=== PATIENT | male | born 1955 | race African-American/Black ===

== ENCOUNTER 2025-09-05 09:29 | Emergency (ER) | payer MEDICARE, SELFPAY ==
--- OUTSIDE RECORDS SUMMARY | 2016-11-25 05:16 | XMS_ITS | Continuity of Care Document ---
Author Organization [facility] vice Agency Address [address] [place] [address] Phone Care Team Providers Care Diversity Manager Name Role Phone Austin Clancy MD Unavailable Unavaila ble Allergies, Adverse Reactions, Alerts Substance Reaction Status Criticality tramadol Active No Information Medications Medication Instructions Dosage Effective Dates (start - stop) Status Comments meloxicam 15 mg tablet take 1 tablet by oral route every day 15 MG - Active gabapentin 300 mg capsule take 1 capsule by oral route 2 times every day 300 MG - Active mirtazapine 30 mg tablet take 1 tablet by oral route every day before bedtime as needed - Active trazodone 150 mg tablet take 2 tablets before bedtime - No Longer Active fluoxetine 40 mg capsule take 1 capsule by oral route every day in the morning 40 MG - No Longer Active tramadol 50 mg tablet take 1 tablet by oral route every 6 hours as needed 50 MG - No Longer Active Procedures Procedure Date OFFICE/OUTPATIENT VISIT, NEW UA Dip_URINALYSIS NONAUTO W/O SCOPE COMPLETE CBC W/AUTO DIFF WBC HIV-1 AG W/HIV-1 & HIV-2 AB COMPREHEN METABOLIC PANEL MICROALBUMIN, QUANTITATIVE ASSAY OF URINE CREATININE Drug Screen, Single Results Test Name Date and Time Measure Units Reference Range Abnormal Flag Status Comments Panel Description: CBC With Differential/Platele t Final WBC 2015 08:25:0 0 7.3 x10E3/u L 3.4-10.8 Final Performed by:Sergio BAZAN) RBC 2015 08:25:0 0 4.57 x10E6/u L 4.14-5.80 Final Performed by:Sergio BAZAN) Hemoglobin 2015 08:25:0 0 12.0 g/dL 12.6-17.7 L Final Performed by:Sergio BAZAN) Hematocrit 2015 08:25:0 0 38.5 % 37.5-51.0 Final Performed by:Sergio BAZAN) MCV 2015 08:25:0 0 84 fL 79-97 Final Performed by:Sergio BAZAN) MCH 2015 08:25:0 0 26.3 pg 26.6-33.0 L Final Performed by:Sergio BAZAN) MCHC 2015 08:25:0 0 31.2 g/dL 31.5-35.7 L Final Performed by:Sergio BAZAN) RDW 2015 08:25:0 0 14.8 % 12.3-15.4 Final Performed by:Sergio BAZAN) Platelets 2015 08:25:0 0 442 x10E3/u L 150-379 H Final Performed by:Sergio BAZAN) Neutrophils 2015 08:25:0 0 75 % Final Performed by:Sergio BAZAN) Lymphs 2015 08:25:0 0 15 % Final Performed by:Sergio BAZAN) Monocytes 2015 08:25:0 0 8 % Final Performed by:Sergio BAZAN) Eos 2015 08:25:0 0 2 % Final Performed by:Sergio BAZAN) Basos 2015 08:25:0 0 0 % Final Performed by:Sergio BAZAN) Immature Cells 2015 08:25:0 0 Final Performed by:Sergio BAZAN) Neutrophils (Absolute) 2015 08:25:0 0 5.4 x10E3/u L 1.4-7.0 Final Performed by:Sergio BAZAN) Lymphs (Absolute) 2015 08:25:0 0 1.1 x10E3/u L 0.7-3.1 Final Performed by:Sergio BAZAN) Monocytes(Absolute ) 2015 08:25:0 0 0.6 x10E3/u L 0.1-0.9 Final Performed by:Sergio BAZAN) Eos (Absolute) 2015 08:25:0 0 0.2 x10E3/u L 0.0-0.4 Final Performed by:Sergio BAZAN) Baso (Absolute) 2015 08:25:0 0 0.0 x10E3/u L 0.0-0.2 Final Performed by:Sergio BAZAN) Immature Granulocytes 2015 08:25:0 0 0 % Final Performed by:Sergio BAZAN) Immature Grans (Abs) 2015 08:25:0 0 0.0 x10E3/u L 0.0-0.1 Final Performed by:Sergio BAZAN) NRBC 2015 08:25:0 0 Final Performed by:Sergio BAZAN) Hematology Comments: 2015 08:25:0 0 Final Performed by:Sergio BAZAN) Panel Description: Comp. Metabolic Panel (14) F inal Glucose, Serum 2015 08:04:0 0 98 mg/dL 65-99 Final Performed by:Sergio BAZAN) BUN 2015 08:04:0 0 20 mg/dL 8-27 Final Performed by:Sergio BAZAN) Creatinine, Serum 2015 08:04:0 0 0.81 mg/dL 0.76-1.27 Final Performed by:Sergio BAZAN) eGFR If NonAfricn Am 2015 08:04:0 0 95 mL/min/ 1.73 >59 Final Performed by:Sergio BAZAN) eGFR If Africn Am 2015 08:04:0 0 109 mL/min/ 1.73 >59 Final Performed by:Sergio BAZAN) BUN/Creatinine Ratio 2015 08:04:0 0 25 10-22 H Final Performed by:Sergio BAZAN) Sodium, Serum 2015 06:58:0 0 138 mmol/L 134-144 Final Performed by:Sergio Hull (THOMAS) Potassium, Serum 2015 06:58:0 0 4.3 mmol/L 3.5-5.2 Final Performed by:Sergio BAZAN) Chloride, Serum 2015 06:58:0 0 97 mmol/L 96-106 Final Performed by:Sergio BAZAN) Carbon Dioxide, Total 2015 08:04:0 0 23 mmol/L 18-29 Final Performed by:Sergio BAZAN) Calcium, Serum 2015 08:04:0 0 9.3 mg/dL 8.6-10.2 Final Performed by:Sergio BAZAN) Protein, Total, Serum 2015 08:04:0 0 7.7 g/dL 6.0-8.5 Final Performed by:Sergio BAZAN) Albumin, Serum 2015 08:04:0 0 4.1 g/dL 3.6-4.8 Final Performed by:Sergio BAZAN) Globulin, Total 2015 08:04:0 0 3.6 g/dL 1.5-4.5 Final Performed by:Sergio BAZAN) A/G Ratio 2015 08:04:0 0 1.1 1.1-2.5 Final Performed by:Sergio BAZAN) Bilirubin, Total 2015 08:04:0 0 0.5 mg/dL 0.0-1.2 Final Performed by:Sergio BAZAN) Alkaline Phosphatase, S 2015 08:04:0 0 72 IU/L 39-117 Final Performed by:Sergio BAZAN) AST (SGOT) 2015 08:04:0 0 10 IU/L 0-40 Final Performed by:Sergio BAZAN) ALT (SGPT) 2015 08:04:0 0 11 IU/L 0-44 Final Performed by:Sergio BAZAN) Panel Description: Heavy Metals Profile, Urine Final Creatinine(Parachute Accessories Attacher),U 2015 15:55:0 0 3.26 g/L 0.30-3.00 H Final Detection Limi t = 0.10Performed by:Sergio BAZAN) Arsenic (Total),U 2015 09:56:0 0 34 ug/L 0-50 Final Detection Limi t = 10Performed by:Sergio BAZAN) Arsenic(Inorganic) ,U 2015 10:31:0 0 None Detected ug/L 0-19 Final . Environmental Exposure: 0-19 Occupational Exposure: 35 . Detection Limit = 10Performed by:Sergio BAZAN) Inorg. As/Parachute Accessories Attacher Ratio 2015 10:31:0 0 Final Performed by:Sergio BAZAN) Arsenic,Urine 24 Hr 2015 09:56:0 0 Final Performed by:Sergio BAZAN) Lead, Urine 2015 09:56:0 0 2 ug/L 0-49 Final Detection Limi t = 1Performed by:Sergio BAZAN) Lead/Creat. Ratio 2015 15:55:0 0 1 ug/g creat 0-49 Final Environmental Exposure: < 50Performed by:Sergio BAZAN) Lead, Urine (24 Hr) 2015 09:56:0 0 Final Performed by:Sergio BAZAN) Mercury, Urine 2015 09:56:0 0 None Detected ug/L 0-19 Final Detection Limit = 1Performed by:Sergio BAZAN) Mercury/Creat. Ratio 2015 09:56:0 0 Final Performed by:Sergio BAZAN) Mercury,Urine 24 Hr 2015 09:56:0 0 Final Performed by:Sergio BAZAN) Panel Description: Microalb/Creat Ratio, Randm U r Final Creatinine, Urine 2015 09:53:0 0 323.1 mg/dL Not Estab. Final Performed by:Sergio BAZAN) Microalbumin, Urine 2015 09:53:0 0 31.9 ug/mL Not Estab. Final Performed by:Sergio BAZAN) Microalb/Creat Ratio 2015 09:53:0 0 9.9 mg/g creat 0.0-30.0 Final Performed by:Sergio BAZAN) Panel Description: No Urine Total Volume Receive d Final No Urine Total Volume Received 2015 17:36:0 0 Final Urine volume confirmed as random per requisition.Uri ne total volume not indicated.Perfo rmed by:Sergio BAZAN) Panel Description: Panel [id number] Final HIV Screen 4th Generation wRfx 2015 09:56:0 0 Non Reactive Non Reactive Final Performed by:Sergio BAZAN) Panel Description: 265694 7 Drug-Bund Final Amphetamines, Urine 2015 08:13:0 0 See Final Results ng/mL Dstrto=3592 Final Amphetamine test includes Amphetamine and Methamphetamine .Performed by:Sergio CUNNINGHAM) Panel Description: Drug Profile [id number] Final Amphetamines 2015 17:47:0 0 Negative Qxxobl=8549 Final Amphetamine test includes Amphetamine and Methamphetamine .Performed by:Sergio CUNNINGHAM) Panel Description: [id number] 7 Drug-Bund Final Barbiturate 2015 08:13:0 0 Negative ng/mL Liqcqr=194 Final Performed by:Sergio CUNNINGHAM) Benzodiazepines 2015 08:13:0 0 Negative ng/mL Qkdfkz=718 Final Performed by:Sergio CUNNINGHAM) Cannabinoid 2015 08:13:0 0 Negative ng/mL Cutoff=50 Final Performed by:Sergio CUNNINGHAM) Cocaine (Metab.) 2015 08:13:0 0 Negative ng/mL Lxumoh=612 Final Performed by:Sergio CUNNINGHAM) Opiates 2015 08:13:0 0 Negative ng/mL Oqxaou=558 Final Opiate test includes Codeine, Morphine, Hydromorphone, Hydrocodone.Per formed by:Sergio CUNNINGHAM) Phencyclidine 2015 08:13:0 0 Negative ng/mL Cutoff=25 Final Performed by:Sergio CUNNINGHAM) Advance Directives Directive Yes / No Effective Date File Name No Information Encounters Encounter Description Practice Location Reason(s) For Visit Diagnoses Date Provider Providers Copied on Encounter OFFICE/OUTPA TIENT VISIT, [facility], [address] [place] [address], [address], [place] tel:[phone] [facility] Musculoskelet al pain (chief complaint)ot er (chief complaint) ParesthesiaIn somnia due to medical conditionPoly myalgiaLow back pain 6 Aston Avila[address] [place] [address], [address]. tel:[phone] Family History Family Member Type Diagnosis Age At Onset No Information Payers Payer name Insurance type Covered constitution party ID Authoriza tion(s) No Information Social History Type Description Quantity Date Captured Comments Alcohol Use Details beer 3 beers socially Caffeine Use Details coffee 1 cup per day Tobacco Use Status Light cigarette smok er (1-9 cigs/day) Smoking Status Light tobacco smoker Smoking Tobacco Use Details Cigarette: No Details Available Cigarette: 2 Cigarettes per day Sex Male Vital Signs Date / Time: Height Weight BMI Pulse Rate Blood Pressure Temperature Respiratory Rate Body Surface Area Head Circumference Head Circ. Percentile Wt./Eric. Percentile BMI percentile Pulse Ox Inhaled Ox 9:44 AM 69.00 in 66.224 kg (146.00 lbs) 21.5 6 kg/m eter (2) 118 /min 110/60 mm[Hg] 97.40 F 20 /min 1.80 meter(2) Chief Complaint And Reason For Visit From encounter dated '11/25/2016 09:16'. Musculoskeletal pain (chief complaint). Description: Onset: 3 months ago. It occurs constantly. Thepain is aching. Associated symptoms include decreased mobility, joint tenderness, spasms, tingling in the arms and weakness. 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 Pt states the poisoning caused him to have full body pain and went to ER on 09/29. other (chief complaint). Description: Pt was seen at [facility] 10/27 and just consulted with a provider who referred him to a neurologist. Pt has not seen neurologist, would like a resolutionfor his muscle pain. Denies relief with tramadol prescribed Reason For Referral Reason For Referral No Information History Of Present Illness Encounter Date Complaint History Of Prese nt Illness other Pt was seen at [facility] 10/27 and just consulted with a provider who referred him to a neurologist. Pt has not seen neurologist, would like a resolution for his muscle pain. Denies relief with tramadol prescribed Musculoskeletal pain (comments) Pt reports he was poisoned with mercury via food from [employer]. Pt states a 'striping' type pain began in bilateral lower legs and has spread to entire body. Pt is taking 2 tab of 600mg of ibuprofen twice a day.Smokes 1/2 PPD. Musculoskeletal pain Onset: 3 mo nths ago. It occurs constantly. The pain is aching. Associated symptoms include decreased mobility, joint tenderness, spasms, tingling in the arms and weakness. 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 Pt states the poisoning caused him to have full body pain and went to ER on 09/29. Functional Status Date Functional Assessmen t No Information Medications Administered Medication Instructions Dosage Effective Dates (start - stop) Status Comments trazodone 150 mg tablet take 2 tablets before bedtime - No Longer Active fluoxetine 40 mg capsule take 1 capsule by oral route every day in the morning 40 MG - No Longer Active tramadol 50 mg tablet take 1 tablet by oral route every 6 hours as needed 50 MG - No Longer Active Instructions Date Instruction Additional Infor mation No Information Assessments Type Assessment Date assessment Paresthesia assessment Insomnia due to medical conditio n assessment Polymyalgia assessment Low back pain Mental Status Date Cognitive Assessment Orientation - [place] ed to time, place, person, situation.Normal Orientation Patient Care Teams Name Effective Dates (start - stop) Status Members No Information
--- OUTSIDE RECORDS SUMMARY | 2025-09-03 09:30 | XMS_ITS | Encounter Summary ---
Author Organization [facility] Address [address] [place] [address] Care Team Providers Care Manager Program Name Role Phone Kelly Lee MD Primary Care Provider [phone] Reason for Visit * Reason Comments Nasal Congestion Cough X 3 days Encounter Details Date Type Department Care Team (Latest Contact Info) Description 09/03/2025 9:30 AM EDT Office Visit Walk-In Clinic - [address] [phone] Hector Smallwood, TRAFFIC CHIEF [address] [place] [address] Symptoms of upper respiratory infection (URI) (Primary [...] care for your loved ones. For example, assistant child care teacher or elderly care for an older adult? [...] of upper respiratory infection (URI) Poc Rapid [id number], MOLECULAR PLAN: The patient's PMH, problem list [...] pt to rest,proper hydration, warm steamy showers, [id number]-[id number] medication decongestants acceptable patient's past medical history. [...] propionate (FLONASE) 50 mcg/actuation nasal spray 1 Gobles by Nasal route daily. 1 sprayeach nostril [...] Care Team (Late st Contact Info) Description 09/06/2025 8:45 AM EDT Office Visit Internal Medicine - [place] [address] [phone] Kelly Lee MD [address] [phone] 11/24/2025 1:00 PM EST Office Visit Internal Medicine [facility] [address] [phone] Kelly Lee MD [address] [phone] documented as of this encounter Procedures Procedure Name Priority Date/Time Associated Diagnosis Comments POC RAPID [id number], MOLECULAR Routine 09/03/2025 9:41 AM EDT Symptoms of upper respiratory infection (URI) documented in this encounter Results * Poc Rapid [id number], MOLECULAR (09/03/2025 9:41 AM EDT) COVID-19/SARS- COV-2 Rapid POC Negative Negative Swab Nasopharyngeal structure / Unknown 09/03/2025 9:41 AM EDT Hector Smallwood TRAFFIC CHIEF POINT OF CARE TEST ENTER/EDIT ORDERABLES Final Result documented in this encounter Visit Diagnoses Diagnosis Symptoms of upper respiratory infection (URI)- Primary documented in this encounter Additional Health Concerns Assessment Noted Time PHQ-9 Depression Total Score: 0 05/25/20 25 1:37 PM EDT documented as of this encounter Care Teams Manager Program Relationship Specialty Start Date End Date Kelly Lee MD [address] [place] [phone] PCP - General Internal Medicine 11/01/18 documented as of this encounter
--- NOTE | ~2025-09-05 | XR_ITS ---
EXAMINATION: XR CHEST CLINICAL INFORMATION: productive cough COMPARISON: None available. TECHNIQUE: 2 views of the chest were obtained. FINDINGS: There is a 4.4 cm rounded density projecting over the right lung base probably in the central perihilar right lower lobe. Differential would include mass versus round pneumonia. Lungs are otherwise clear. Cardiac and mediastinal contours are normal. No pleural effusion or pneumothorax. Degenerative changes of the spine. XR/XR chest 2V IMPRESSION: 4.4 cm round density at the right lung base probably in the central right lower lobe. Differential would include a mass and round pneumonia. If there is clinical suspicion of pneumonia, short-term follow-up chest x-ray would be recommended following treatment. If there is no clinical suspicion of infection, chest CT follow-up would be recommended at this time. Electronically signed by: Adeline Lopez MD 09/05/2025 10:14 AM EDT
[2025-09-05 09:54] VITALS: BP 133/95; PULSE 80; RESP 18; TEMP 37; O2SAT 95; BMI 26.6
--- NOTE | 2025-09-05 09:54 | ED_ITS ---
HPI - General Adult General Chief complaint: Extremity Injury, Upper Stated complaint: Upper resp symptoms Time Seen by Provider: 09/05/25 10:15 Source: patient, RN notes reviewed and old records reviewed Mode of arrival: ambulatory Limitations: no limitations History of Present Illness ED Provider: [facility] narrative: Patient is a 70-year-old male with reported history of HTN presenting to the ED with complaint of congestion, productive cough since waking on Thursday morning. Denies fevers. Thursday he was seen at urgent care and tested negative for Covid. Cough ongoing and states sputum is a dark brown color. complaint: cough Onset (ago): day(s) Related Data Previous Rx's ?Medication ?Instructions ?Recorded amoxicillin 500 mg capsule 1,000 mg (2 x 500 mg) PO TI D 5 09/05/25 days #30 caps Allergies Allergy/AdvReac Type Severity Reaction Status Date / Time lisinopril Allergy Angioedema Verified 09/05/25 10:52 Review of Systems Review of Systems: as per hpi Yes all other systems are reviewed and are negative Constitutional: Constitutional: Reports as per HPI [facility] Social History Social History Advance Directives: No Advance Directives Information Provided: No Physical Exam ED Vital Signs: Vital Signs - 24 hr 09/05/25 09:54 Temperature 98.6 F Pulse Rate 80 Respiratory Rate 18 Blood Pressure 133/95 H Pulse Oximetry 95 Oxygen Delivery Method Room Air BMI result Body Mass Index 26.6 Vital signs have been reviewed and appear to be correct. Blood pressure normal. Heart rate normal. Respiratory rate normal. Temperature normal. Oxygen saturation normal. Const General: cooperative, healthy appearing and no acute distress Orientation/consciousness: oriented to person, oriented to place, oriented to time and patient oriented x3 Limitations: no limitations HENMT Head: Yes normocephalic and Yes atraumatic Ears: hearing grossly normal bilaterally, external ears normal, TM's normal bilaterally, EAC's normal, mastoids normal bilaterally and no periauricular adenopathy General nose exam: Normal external nose present and Normal nasal mucous membranes and turbinates present Face and sinus: Yes face symmetric Mouth: oropharynx normal and moist mucous membranes Throat: Yes uvula midline Eyes Pupils: Equal, round and reactive pupils present Neck Neck: Yes normal visual inspection and Yes supple Resp Effort & Inspection: normal respiratory effort and able to speak in complete sentences Auscultation: clear to auscultation bilaterally Cardio Rate: regular rate Rhythm: regular rhythm Heart sounds: S1 normal heart sound present and S2 normal heart sound present GI Palpation (GI): Soft to palpation and nontender Auscultation: normoactive bowel sounds General: Yes no CVA tenderness Back/Spine/Pelvis Back: no CVA tenderness Skin General skin exam: elasticity normal and turgor normal Neuro General: oriented to person, oriented to place, oriented to time, patient oriented x3, moves all extremities, no focal motor deficits and CN's II-XI intact bilaterally Cranial nerves: Yes Equal, round and reactive pupils present Cognition (Neuro): normal cognition Extrem General: Yes full ROM, Yes no pedal edema and Yes no calf tenderness Psych Mental Status: mental status grossly normal Affect: normal affect Thought process: Normal thought process present Course Course Course Narrative: This is a rapid medical exam performed by Alex Worthy NP: Additional HPI, ROS, PE not included below will be deferred to primary provider. Patient is a 70y/o M presenting to the ED with complaint of congestion, productive cough. Denies fevers. Sxs since before Thursday when he was seen at urgent care. Plan: viral swabs, CXR Medical Decision Making Medical Decision Making [facility] Narrative: Patient is a 70y/o M presenting to the ED with complaint of congestion, productive cough. On exam patient is awake, A+Ox3, VS WNL, afebrile, normal neurological exam without focal deficits, physical exam findings as above. Given reported symptoms and physical exam findings, initial differential includes but is not limited to viral illness, Covid, flu, bronchitis, pneumonia. Viral swabs negative. X-ray chest notable for round pneumonia vs mass. My interpretation is in agreement with the radiologist's interpretation. Given that patient has pneumonia symptoms, will treat with antibiotics, but discussed results with patient and stressed the importance of follow up with his PCP for repeat imaging to rule out mass. Return precautions discussed. Patient verbalized understanding of and agreement with plan. Differential Diagnosis Differential Diagnoses: The differential diagnosis associated with the presentation includes as per [facility] Admission/Observation Consideration of admission/observation: Escalation of care including admission/observation considered Patient would have been admitted to the hospital and transferred to appropriate facility had their clinical presentation warranted hospital admission. Lab Data [facility] Lab Attestation statement: I reviewed the patient's lab results. as per [facility] Labs: Lab Results 09/05/25 Range/Units 10:09 COVID-19 (MARCEL) Negative (Negative) COVID-19 Clin Com See Note Influenza Type A (JELANI) Negative (Negative) Influenza Type B (JELANI) Negative (Negative) Influenza A & B Note See Note Independent Interpretation I performed an independent interpretation of an: Plain X-Ray Interpretation: Right lower lobe density of chest xray. Radiology Impression Discussion of test interpretation with radiology: I have reviewed the radiologist's reading. Radiologist Impression: XR/XR chest 2V IMPRESSION: 4.4 cm round density at the right lung base probably in the central right lower lobe. Differential would include a mass and round pneumonia. If there is clinical suspicion of pneumonia, short-term follow-up chest x-ray would be recommended following treatment. If there is no clinical suspicion of infection, chest CT follow-up would be recommended at this time. External Record Review External record reviewed: Inpatient record, Office record and Outpatient record Prescription Management I considered prescription management with: Antibiotic Discharge Plan Discharge Clinical Impression: Right lower lobe pneumonia Qualifiers: Pneumonia type: due to unspecified organism Qualified Code(s): J18.9 - Pneumonia, unspecified organism Patient Disposition: Home, Self-Care Instructions: Community Acquired Pneumonia (DC) Additional Instructions: You were evaluated in the emergency department today for cough and shortness of breath. Your chest x-ray shows evidence of pneumonia. The area on your chest x-ray is round, and it is very important that you follow up with your primary care provider for a repeat chest x-ray following treatment to ensure this have resolved, otherwise it could be concerning for a mass. You are being treated with antibiotics, please complete the full course as prescribed. You are also being prescribed an inhaler and cough medicine which you can use per instructions. Please call your primary care provider within the next 2-3 days to schedule a follow-up appointment. You will need a repeat chest x-ray to confirm resolution of your pneumonia. Return to the emergency department if you develop worsening shortness of breath, chest pain, palpitations, fever 100.4? F or greater, or any other concerning symptoms. XR/XR chest 2V IMPRESSION: 4.4 cm round density at the right lung base probably in the central right lower lobe. Differential would include a mass and round pneumonia. If there is clinical suspicion of pneumonia, short-term follow-up chest x-ray would be recommended following treatment. If there is no clinical suspicion of infection, chest CT follow-up would be recommended at this time. Prescriptions: New amoxicillin 500 mg capsule 1,000 mg PO TID 5 Days Qty: 30 0RF Print Language: Bulgarian
[2025-09-05 10:34] LABS: COVID-19 Test Negative (Negative); IDNOW Serial# 55D5AD1C; IDNOW Serial# 58CA691E; Influenza B2 Negative (Negative)
[2025-09-05 10:52] VITALS: BP 133/95; PULSE 80; RESP 18; TEMP 37; O2SAT 95
--- OUTSIDE RECORDS SUMMARY | 2025-09-05 12:10 | XMS_ITS | Encounter Summary ---
Author Organization [facility] Address [address] [place] [address] Care Team Providers Care Vehicle Insurance Agent Name Role Phone Kelly Lee MD Primary Care Provider [phone] Reason for Visit * Reason Onset Date Comments Cough 09/05/2025 Encounter Details Date Type Department Care Team (Late st Contact Info) Description 09/05/2025 Telephone Internal Medicine - [place] [address] [place] [phone] Kelly Lee MD [address] [place] [phone] Social History Tobacco Use Types Packs/Day Years [...] Record ed Within the last 3 months, charline wilder many times did you visit the emergency [...] care for your loved ones. For example, childcare aide or elderly care for an older adult? [...] on file documented as of this encounter Progress Notes * Montserrat Wyatt RN - 09/05/2025 9:44 AM EDT Call to pt # [phone], spoke w/ his . He went to last week. His symptoms are continued. They are concerned. The just brought the pt to [facility] ER and they will wait there for treatment for his URI. Is looking for an appt for his skin changes - the pt is black and he is getting patches on white onhis back - I booked for tomorrow with Dr. Lee. They will call if the pt still in the hospital.Otherwise will bring his d/c summary with them to the appt * Milena Ventura - 09/05/2025 9:37 AM EDT Patient called and stated that he has a upper respiratory infection because he has a cough with green and brown mucus coming up and he has been like this for over a week. Patient also mentioned he has spots on his back and skin one is getting light and supply controller Please advise Cb# [phone] documented in this encounter Plan of Treatment Upcoming Encounters Date Type Department Care Team (Late st Contact Info) Description 09/06/2025 8:45 AM EDT Office Visit Internal Medicine - [place] [address] [phone] Kelly Lee MD [address] [phone] 11/24/2025 1:00 PM EST Office Visit Internal Medicine - [place] [address] [phone] Kelly Lee MD [address] [phone] documented as of this encounter Visit Diagnoses Not on filedocumented in this encounter Additional Health Concerns Assessment Noted Time PHQ-9 Depression Total Score: 0 05/25/20 25 1:37 PM EDT documented as of this encounter Care Teams Vehicle Insurance Agent Relationship Specialty Start Date End Date Kelly Lee MD [address] [phone] PCP - General Internal Medicine 12/3/18 documented as of this encounter
--- OUTSIDE RECORDS SUMMARY | 2025-09-05 12:10 | XMS_ITS | Clinical Summary ---
Author Organization [address] [facility] Address [address] [place] [address] Phone Care Team Providers Care Commercial Intelligence Manager Name Role Phone Kelly Lee MD Primary Care Provider [phone] Allergies Active Allergy Reactions Criticality Noted Date Comments Lisinopril Swelling 01/12/2012 Medications fluticasone propionate (FLONASE) 50 mcg/actuation nasal spray 1 [place] by Nasal route daily. 1 spray each nostril daily 05/21/20 23 Active tamsulosin (FLOMAX) 0.4 mg 24 hr capsule Take 1 capsule (0.4 mg total) by mouth 1 (one) time each day. Capsules should be taken 30 minutes following the same meal each day. 90 capsule 2 02/25/20 25 Active magnesium oxide (MAG-OX) 400 mg (241.3 elemental magnesium) tablet Take 1 tablet (400 mg total) by mouth 1 (one) time each day. 30 tablet 1 03/06/20 25 Active metFORMIN XR (GLUCOPHAGE-XR ) 500 mg 24 hr tablet Take 1 tablet (500 mg total) by mouth 1 (one) time each day with breakfast. Do not crush, chew, or split. 90 tablet 03/09/20 25 Active potassium chloride (KLOR-CON M10) 10 mEq CR tablet TAKE 1 TABLET BY MOUTH DAILY 100 tablet 2 03/20/20 25 Active hydroCHLOROthi azide (HYDRODIURIL) 25 mg tablet Take 1 tablet (25 mg total) by mouth 1 (one) time each day. 90 tablet 1 05/25/20 25 Active amLODIPine (NORVASC) 10 mg tablet Take 1 tablet (10 mg total) by mouth 1 (one) time each day. 90 tablet 1 05/25/20 25 Active atorvastatin (LIPITOR) 10 mg tablet TAKE 1 TABLET(10 MG) BY MOUTH 1 TIME EACH DAY 90 tablet 1 05/25/20 25 Active magnesium oxide 400 mg magnesium capsule Take 1 capsule by mouth at bedtime. 90 capsule 3 05/25/20 25 Active carbamide peroxide (DEBROX) 6.5 % otic solution Administer 5-10 drops into each ear 2 (two) times a day. 30 mL 5 06/08/20 25 026 Active meloxicam (MOBIC) 7.5 mg tabletIndicati ons:Subacute maxillary sinusitis Take 1 tablet (7.5 mg total) by mouth 1 (one) time each day. 10 each 1 07/04/20 25 Active losartan (COZAAR) 100 mg tablet TAKE 1 TABLET(100 MG) BY MOUTH 1 TIME EACH DAY 30 tablet 1 08/21/20 25 Active benzonatate (TESSALON) 100 mg capsule Take 1 capsule (100 mg total) by mouth 3 (three) times a day if needed for cough for up to 7 days. Do not crush or chew. 21 each 09/03/20 25 025 Active losartan (COZAAR) 100 mg tablet Take 1 tablet (100 mg total) by mouth 1 (one) time each day. 30 each 2 05/25/20 25 025 Discontinued Active Problems Problem Noted Date Diagnosed Date Anemia 11/15/2024 Assessment & Plan (05/25/2025 10:16 PM EDT): Orders: Comprehensive metabolic panel; Future Magnesium; Future CBC and differential; Future Iron and TIBC; Future Ferritin; Future History of alcohol abuse 11/08/2018 Hypertension 08/19/2018 Vitamin D deficiency 08/14/2018 Hypokalemia 05/20/2018 Assessment & Plan (05/25/2025 10:16 PM EDT): Orders: Comprehensive metabolic panel; Future Magnesium; Future CBC and differential; Future Benign prostate hyperplasia 06/23/2017 ED (erectile dysfunction) 12/11/2015 Essential hypertension, benign 04/02/2006 Assessment & Plan (05/25/2025 10:16 PM EDT): Orders: Comprehensive metabolic panel; Future Magnesium; Future CBC and differential; Future Encounters Date Type Department Care Team Description 09/05/2025 Telephone Internal Medicine [address] [phone] Kelly Lee MD 09/03/2025 9:30 AM EDT Office Visit [facility] [address] [phone] Hector Smallwood, LISANDRA Symptoms of upper respiratory infection (URI) (Primary Dx) 07/04/2025 9:00 AM EDT Office Visit Internal Medicine [address] [phone] Glen Elias MD Subacute maxillary sinusitis (Primary Dx); Nonintractable headache, unspecified chronicity pattern, unspecified headache type 07/03/2025 Telephone Internal Medicine [address] [phone] Kelly Lee MD 06/08/2025 3:45 PM EDT Office Visit Internal [address] [phone] Lainey Wells MD Sore throat (Primary Dx); Nonintractable headache, unspecified chronicity pattern, unspecified headache type; Bilateral impacted cerumen from Last 3 Months Immunizations Immunization Administration Dates Next Due Influenza trivalent, 0.5mL (Fluad) 65yo and olde r 08/22/2019 [place] SARS-CoV-2 COVID-19, mRNA, LNP-S, preservative free 03/07/2021,02/08/2021 Pneumococcal conjugate 13 va lent (Prevnar 13, PCV13) 2mo and older 08/19/2018 Td Tetanus diptheria (Tdvax) 7yo and older 04/02,11/30/1995 Tdap Tetanus diptheria acell ular pertussis (Boostrix; Adacel) 7yo and older 12/11/2015 Zoster Live 05/25/2015 Surgical History Surgery Date Site/Laterality Comments COLONOSCOPY 02/22/2009 PROCEDURE: HISTORICAL COLONOSCOPY; COMMENT: Up to cecum, good preparation, 3 polyps removed from sigmoid: Tubular adenoma COLONOSCOPY 09/02/2013 PROCEDURE: HISTORICAL COLONOSCOPY; COMMENT: 12 mm TVA with focal HGD at the rectosigmoid junction. COLONOSCOPY 03/09/2015 PROCEDURE: HISTORICAL COLONOSCOPY; COMMENT: 5 mm SC polyp; hot snare polypectomy, small tissue specimen lost. Medical History Medical History Date Comments ED (erectile dysfunction) 12/11/2015 DX:ED (erectile dysfunction) Vitamin D deficiency 08/14/2018 DX:Vitamin D deficiency Hypertension 08/19/2018 DX:Hypertension History of diverticulitis of colon 01/17/2014 DX:History of diverticulitis of colon Benign prostate hyperplasia 06/23/2017 DX:B enign prostate hyperplasia Essential hypertension, benign 04/02/2006 D X:Essential hypertension, benign History of alcohol abuse 11/08/2018 DX:Hist ory of alcohol abuse Hypokalemia 05/20/2018 DX:Hypokalemia History of colon polyps 03/08/2015 DX:Histo ry of colon polyps History of COVID-19 03/11/2021 DX:History o f COVID-19 Family History Medical History Relation Name Comments Other: Other Brother 1 Other: Other Brother 2 Other: Other Sister 1 Other: Other Sister 2 alcoholic cirrh osis Relation Name Status Comments Brother 1 Brother 2 Sister 1 Sister 2 Social History Tobacco Use Types Packs/Day Years [...] care for your loved ones. For example, director maternal child or elderly care for an older adult? [...] on file Sexual Orientation Not on file Obstetrics History Last Filed Vital Signs Vital Sign Reading Time Taken Comments Blood Pressure 154/78 09/03/2025 9:31 AM EDT Pulse 94 09/03/2025 9:31 AM EDT Temperature 36.5 C (97.7 F) 09/03/2025 9:31 AM EDT Respiratory Rate - - Oxygen Saturation 98% 09/03/2025 9:31 AM EDT Inhaled Oxygen Concentration - - Weight 79.3 kg (174 lb 12.8 oz) 07/04/2025 8:57 AM EDT Height 167.6 cm (5' 6 ) 07/04/2025 8:57 AM EDT Body Mass Index 28.21 07/04/2025 8:57 AM EDT Plan of Treatment Upcoming Encounters Date Type Department Care Team (Late st Contact Info) Description 09/06/2025 8:45 AM EDT Office Visit Internal Medicine - [place] [address] [facility] [address] [place] [phone] Kelly Lee MD 175 [facility] [address] [place] [phone] 11/24/2025 1:00 PM EST Office Visit Internal Medicine [facility] 175 [facility] [address] [place] [phone] Kelly Lee MD [address] [phone] Health Maintenance Due Date Last Done Comments Abdominal Aortic Aneurysm (AAA) Screen 11/08/2022 Zoster Vaccines (3 of 3) 04/09/2024 02/13/2024, 05/01 COVID-19 Vaccine ( season) 2025 09/16/2024, 02/13/2024, 09/03/2023, Additional history exists Falls Risk Assessment 11/15/2025 11/15/2024 Social Influencers of Health Screening 11/15/2025 11/15/2024 DTaP,Tdap,and Td Vaccines (4 - Td or Tdap) 12/11/2025 12/11/2015, 04/02/2006, 11/30/1995 Colorectal Cancer Screening: Colonoscopy 12/17/2025 12/17/2020 Hypertension/CHF/CAD Annual BMP Blood Test 05/25/2026 05/25/2025, 11/15/2024, 05/26/2024, Additional history exists Medicare Annual Wellness Visit 05/25/2026 05/25/2025 Cholesterol Screening (Lipid Panel) 05/26/2029 05/26/2024, 05/26/2024 Hepatitis C Screening Completed 10/11/2019 RSV Immunization Adult Patients Completed 09/03/2023 Pneumococcal Vaccine: 50+ Years Completed 02/13/2024, 08/19/2018 Depression Screening Completed 05/25/2025, 05/26/20 Influenza Vaccine Completed 08/02/2025, , 09/03/2023, Additional history exists HIB Vaccines Aged Out No longer eligi ble based on patient's age to complete this topic HPV Vaccines Aged Out No longer eligi ble based on patient's age to complete this topic Hepatitis A Vaccines Aged Out No long er eligible based on patient's age to complete this topic Hepatitis B Vaccines Aged Out No long er eligible based on patient's age to complete this topic IPV Vaccines Aged Out No longer eligi ble based on patient's age to complete this topic MMR Vaccines Aged Out No longer eligi ble based on patient's age to complete this topic Meningococcal ACWY Vaccine Aged Out N o longer eligible based on patient's age to complete this topic Meningococcal B Vaccine Aged Out No l onger eligible based on patient's age to complete this topic RSV Immunization Patients Under 20 months Aged Out No longer eligible based on patient's age to complete this topic Varicella Vaccines Aged Out No longer eligible based on patient's age to complete this topic Procedures Procedure Name Priority Date/Time Associated Diagnosis Comments POC RAPID [id number], MOLECULAR Routine 09/03/2025 9:41 AM EDT Symptoms of upper respiratory infection (URI) COMPREHENSIVE METABOLIC PANEL Routine 05/25/2025 2:03 PM EDT Hypokalemia Essential hypertension, benign Anemia, unspecified type DEPRESSION SCREENING Routine 05/26/2024 LIPID PANEL Routine 05/26/2024 COLONOSCOPY Routine 12/17/2020 HEPATITIS C SCREENING Routine 10/11/2019 from Last 3 Months or Most Recently Relevant to Health Maintenance Results * Poc Rapid [id number], MOLECULAR (09/03/2025 9:41 AM EDT) Pathologist [facility] COVID-19/SARS- COV-2 Rapid POC Negative Negative Swab Nasopharyngeal structure / Unknown 09/03/2025 9:41 AM EDT Hector Smallwood NP POINT OF CARE TEST ENTER/EDIT ORDERABLES Final Result * (ABNORMAL) Comprehensive metabolic panel (05/25/2025 2:03 PM EDT) [facility] Sodium 138 133 - 145 mmol/L LAB CHEMISTRY METHOD 05/25/2025 7:04 PM [facility] Potassium 3.6 3.5 - 5.5 mmol/L LAB CHEMISTRY METHOD 05/25/2025 7:04 PM [facility] Chloride 104 96 - 110 mmol/L LAB CHEMISTRY METHOD 05/25/2025 7:04 PM [facility] CO2 27 21 - 32 mmol/L LAB CHEMISTRY METHOD 05/25/2025 7:04 PM [facility] Anion Gap 7 3 - 11 LAB CHEMISTRY METHOD 05/25/2025 7:04 PM [facility] Glucose 133(H) 70 - 100 mg/dL LAB CHEMISTRY METHOD 05/25/2025 7:04 PM [facility] BUN 13 5 - 25 mg/dL LAB CHEMISTRY METHOD 05/25/2025 7:04 PM [facility] Creatinine 1.00 0.70 - 1.30 mg/dL LAB CHEMISTRY METHOD 05/25/2025 7:04 PM [facility] eGFR 80 >=60 mL/min/1. 73m2 LAB CHEMISTRY METHOD 05/25/2025 7:04 PM [facility] Comment:Calculation based on the Chronic Kidney Disease Epidemiology Collaboration (CKD-EPI) equation refit without adjustment for race. BUN/Creatinine Ratio 13.0 LAB CHEMISTRY METHOD 05/25/2025 7:04 PM [facility] Calcium 9.1 8.5 - 10.5 mg/dL LAB CHEMISTRY METHOD 05/25/2025 7:04 PM [facility] AST (SGOT) 16 10 - 42 unit/L LAB CHEMISTRY METHOD 05/25/2025 7:04 PM [facility] ALT (SGPT) 27 10 - 60 unit/L LAB CHEMISTRY METHOD 05/25/2025 7:04 PM [facility] Alkaline Phosphatase 63 42 - 121 unit/L LAB CHEMISTRY METHOD 05/25/2025 7:04 PM [facility] Total Protein 7.8 6.0 - 8.0 g/dL LAB CHEMISTRY METHOD 05/25/2025 7:04 PM [facility] Albumin 3.9 3.2 - 5.0 g/dL LAB CHEMISTRY METHOD 05/25/2025 7:04 PM [facility] Total Bilirubin 0.5 0.0 - 1.4 mg/dL LAB CHEMISTRY METHOD 05/25/2025 7:04 PM [facility] Blood Venous blood specimen / Unknown Venipuncture / Unknown 05/25/2025 2:03 PM EDT 05/25/2025 2:03 PM EDT us Kelly Lee MD LAB BLOOD ORDERABLES Final Res ult [facility] [address] [place] [address], * Depression Screening (05/26/2024) Pathologist [facility] Depression Screening abstracted Historical Provider HEALTH MAINTENANCE Final Result * Lipid panel (05/26/2024) LDL/HDL Ratio 3 0 - 4 Triglycerides 72 0 - 150 mg/dL Cholesterol 181 0 - 200 mg/dL HDL 70 >=40 mg/dL LDL Cholesterol 97 0 - 100 mg/dL Blood Venous blood specimen / Unknown Historical Provider LAB BLOOD ORDERABLES Cynthia l Result * Colonoscopy (12/17/2020) Colonoscopy abstracted, no interpretation Anatomical Region Laterality Modality Other Historical Provider HEALTH MAINTENANCE Final Result * Hepatitis C Screening (10/11/2019) Pathologist [facility] Hepatitis C Screening abstracted Historical Provider HEALTH MAINTENANCE Final Result from Last 3 Months or Most Recently Relevant to Health Maintenance Insurance [employer] Care Teams Commercial Intelligence Manager Relationship Specialty Start Date End Date Kelly Lee MD [address] [place] [phone] PCP - General Internal Medicine 11/01/18
== END 2025-09-05 10:53 | disposition home or self-care (01) ==
PROVIDERS: Registered Nurse Emergency; Emergency Provider Emergency Medicine; PCP Internal Medicine
DX: J18.9 Pneumonia, unspecified organism (principal); R05.9 Cough, unspecified; Z11.52 Encounter for screening for COVID-19; Z79.899 Other long term (current) drug therapy
CPT/HCPCS: 71046; 87502; 87635; 99282; 99283

== ENCOUNTER → 2025-09-05 09:55 | Outpatient (BNV) | payer MEDICARE, SELFPAY | PROVIDERS: Emergency Provider Emergency Medicine; PCP Internal Medicine; Visit Provider Radiology Diagnostic Radiology | DX: R91.8 Other nonspecific abnormal finding of lung field (principal) | CPT/HCPCS: 71046 ==

== ENCOUNTER 2025-09-07 12:39 | Emergency (ER) | payer MEDICARE, SELFPAY ==
--- OUTSIDE RECORDS SUMMARY | 2025-09-03 09:30 | XMS_ITS | Encounter Summary ---
Author Organization [facility] Address [address] [place] [address] Care Team Providers Care Global Compensation Manager Name Role Phone Kelly Lee MD Primary Care Provider [phone] Reason for Visit * Reason Comments Nasal Congestion Cough X 3 days Encounter Details Date Type Department Care Team (Latest Contact Info) Description 09/03/2025 9:30 AM EDT Office Visit Walk-In Clinic - [address] [phone] Hector Smallwood, [employer] [address] [place] [phone] Symptoms of upper respiratory infection (URI) (Primary Dx) Social History Tobacco Use Types Packs/Day Years Used Date Smoking Tobacco: Former Cigarettes 0.5 33.4 0 11/30/1972 - 04/30/2006 Smokeless Tobacco: Never Alcohol Use Standard Drinks/Week Comments No 0 (1 standard drink = 0.6 oz pur e alcohol) Housing Instability Answer Date Recorde d Are you worried that in the next 2 months you may not have stable housing? No 11/15/2024 Food Access & Nutrition Answer Date Rec orded Do you have access to a vari ety of food including fruits and vegetables? Yes 11/15/2024 Access to Healthcare Answer Date Record ed Within the last 3 months, ho w many times did you visit the emergency department for your medical care? 0 11/15/2024 Health Literacy Answer Date Recorded How often do you need to hav e someone help you when you read instructions, pamphlets, or other written material from your doctor or pharmacy? Never 11/15/2024 Caregiver: How often do you need to have someone help you when you read instructions, pamphlets, or other written material from your doctor or pharmacy? Not on file 11/15/2024 Financial Risk Answer Date Recorded How hard is it for you to pa y for the very basics like food, housing, medical care, and air conditioning / heating? Not very hard 11/15/2024 Transportation Answer Date Recorded Has the lack of transportati on kept you from meetings, work, or from getting things needed for daily living? No Has the lack of transportati on kept you from medical appointments or from getting medications? No 11/15/2024 Social Isolation Answer Date Recorded How often do you feel lonely or isolated from th ose around you? Never 11/15/2024 Food Risk Answer Date Recorded Within the past 12 months we worried whether our food would run out before we got money to buy more. Never true 11/15/2024 Within the past 12 months th e food we bought just didn't last and we didn't have money to get more. Never true 11/15/2024 Dependent Care Answer Date Recorded Do you need help finding or paying for care for your loved ones. For example, children's ministry director or elderly care for an older adult? No 11/15/2024 Education Answer Date Recorded Do you think completing more education or training, like finishing a GED, going to college, or learning a trade, would be helpful for you? N/A 11/15/2024 Employment and Income Answer Date Recor ded During the last four weeks, have you been actively looking for work? No 11/15/2024 Living Situation Answer Date Recorded What is your living situation? Unrecognized valu e 11/15/2024 Sex and Gender Information Value Date Recorded Sex Assigned at Not on file Legal Sex Male 12:56 AM EST Gender Identity Not on file Sexual Orientation Not on file documented as of this encounter Last Filed Vital Signs Vital Sign Reading Time Taken Comments Blood Pressure 154/78 09/03/2025 9:31 AM EDT Pulse 94 09/03/2025 9:31 AM EDT Temperature 36.5 C (97.7 F) 09/03/2025 9:31 AM EDT Respiratory Rate - - Oxygen Saturation 98% 09/03/2025 9:31 AM EDT Inhaled Oxygen Concentration - - Weight - - Height - - Body Mass Index - - documented in this encounter Ordered Prescriptions Prescription Sig Dispense Quantity Refills Last Filled Start Date End Date benzonatate (TESSALON) 100 mg capsule Take 1 capsule (100 mg total) by mouth 3 (three) times a day if needed for cough for up to 7 days. Do not crush or chew. 21 each 09/03/2025 documented in this encounter Progress Notes * Hector Smallwood NP - 09/03/2025 9:30 AM EDT CHIEF COMPLAINT: Nasal Congestion and Cough (X 3 days ) IDENTIFIER: Jw De Leon is a 70 y.o. old male. HPI: Patient presents today complaining of cough for 3 day(s). Cough is productive of sputum. denies shortness of breath. denies wheezing. Patient denies fevers. Patient also complains of post nasal drip,sinus and nasal congestion, and sore throat. ROS: GENERAL: SEE HPI HEENT: SEE HPI RESPIRATORY: See HPI CARDIOVASCULAR: SEE HPI GI: No abdominal discomfort, blood in stools or black stools PAST MEDICAL HISTORY: Patient Active Problem List Diagnosis Date Noted Anemia 11/15/2024 History of alcohol abuse 11/08/2018 Hypertension 08/19/2018 Vitamin D deficiency 08/14/2018 Hypokalemia 05/20/2018 Benign prostate hyperplasia 06/23/2017 ED (erectile dysfunction) 12/11/2015 Essential hypertension, benign 04/02/2006 Surgical History[1] SOCIAL HISTORY: Social History Tobacco Use Smoking status: Former Current packs/day: 0.00 Average packs/day: 0.5 packs/day for 33.4 years (16.7 ttl pk-yrs) Types: Cigarettes Start date: 11/30/1972 Quit date: 04/30/2006 Years since quittin.3 Smokeless tobacco: Never Substance Use Topics Alcohol use: No FAMILY HISTORY: Family History[2] Family Status Relation Name Status Sister (Not Specified) Sister (Not Specified) Brother (Not Specified) Brother (Not Specified) No partnership data on file MEDICATIONS DISCONTINUED/REORDERED: There are no discontinued medications. ACTIVE MEDICATIONS: Medications Taking[3] ALLERGIES: Allergies[4] PHYSICAL EXAM: Vitals: 09/03/25 0931 BP: (!) 154/78 Pulse: 94 Temp: 36.5 ??C (97.7 ??F) TempSrc: Temporal SpO2: 98% APPEARANCE: Alert and in no acute distress EYES: PERRL, conjunctiva and sclera normal EARS: External ears normal. Canals clear. TMs normal. NOSE/SINUS: Nares normal. Septum midline. Mucosa boggy with congestion. Turbinates with erythema. No drainage. No sinus tenderness. MOUTH/THROAT: mild erythema post pharangeal wall with PND noted and no exudates present NECK: negative HEART: RRR with normal S1 and S2, no murmurs, no gallops, no JVD appreciated LUNG: Clear to auscultation LYMPH NODES: grossly normal NEURO: Awake, alert and oriented x 3 LABS/IMAGING: Chest xray was not ordered COVID Test- negative IMPRESSION: 1. Symptoms of upper respiratory infection (URI) Poc Rapid [id number], MOLECULAR PLAN: The patient's PMH, problem list and medications were reviewed in reference to the above diagnosis/diagnoses. *. Based on History, ROS, HPI and PE, covid test performed (negative). *. Based on HPI, ROS and PE, suggestive of viral URI. *. Prescribed benzonatate . Proper dosing and method to take medication addressed with patient. Therisks and benefits of this medication were discussed with the patient. The patient understands the potential side effects and basic interactions of this medication. The patient is asked to call me ormy colleagues if they begin to experience any difficulties with this medication. *. Educated pt to rest,proper hydration, warm steamy showers, [id number] medication decongestants acceptable patient's past medical history. Verbal suggestions given in the office but patient will check with pharmacist as we do not know every medication every pharmacy. *. Advised to follow up with PCP in 14 days, if symptoms are not improving. Advised to follow up with PCP immediately for new or worsening symptoms. *. Discussed warnings signs and symptoms that would require immediate follow up at UC/ER. Patient verbalized understanding and agreement with the plan. Hector Smallwood NP on 09/03/2025 at 9:34 AM EDT Today's documentation was made using voice recognition software. This note may contain grammatical errors secondary to this software. [1] Past Surgical History: Procedure Laterality Date COLONOSCOPY 02/22/2009 PROCEDURE: HISTORICAL COLONOSCOPY; COMMENT: Up to cecum, good preparation, 3 polyps removed from sigmoid: Tubular adenoma COLONOSCOPY 09/02/2013 PROCEDURE: HISTORICAL COLONOSCOPY; COMMENT: 12 mm TVA with focal HGD at the rectosigmoid junction. COLONOSCOPY 03/09/2015 PROCEDURE: HISTORICAL COLONOSCOPY; COMMENT: 5 mm SC polyp; hot snare polypectomy, small tissue specimen lost. [2] Family History Problem Relation Name Age of Onset Other (Other: Other) Sister Other (Other: Other) Sister alcoholic cirrhosis Other (Other: Other) Brother Other (Other: Other) Brother [3] Outpatient Medications Marked as Taking for the 09/03/25 encounter (Office Visit) with Hector Smallwood NP Medication Sig Dispense Refill amLODIPine (NORVASC) 10 mg tablet Take 1 tablet (10 mg total) by mouth 1 (one) time each day. 90 tablet 1 atorvastatin (LIPITOR) 10 mg tablet TAKE 1 TABLET(10 MG) BY MOUTH 1 TIME EACH DAY 90 tablet 1 carbamide peroxide (DEBROX) 6.5 % otic solution Administer 5-10 drops into each ear 2 (two) times aday. 30 mL 5 fluticasone propionate (FLONASE) 50 mcg/actuation nasal spray 1 [place] by Nasal route daily. 1 sprayeach nostril daily hydroCHLOROthiazide (HYDRODIURIL) 25 mg tablet Take 1 tablet (25 mg total) by mouth 1 (one) time each day. 90 tablet 1 losartan (COZAAR) 100 mg tablet TAKE 1 TABLET(100 MG) BY MOUTH 1 TIME EACH DAY 30 tablet 1 magnesium oxide (MAG-OX) 400 mg (241.3 elemental magnesium) tablet Take 1 tablet (400 mg total) by mouth 1 (one) time each day. 30 tablet 1 magnesium oxide 400 mg magnesium capsule Take 1 capsule by mouth at bedtime. 90 capsule 3 meloxicam (MOBIC) 7.5 mg tablet Take 1 tablet (7.5 mg total) by mouth 1 (one) time each day. 10 each 1 metFORMIN XR (GLUCOPHAGE-XR) 500 mg 24 hr tablet Take 1 tablet (500 mg total) by mouth 1 (one) timeeach day with breakfast. Do not crush, chew, or split. 90 tablet 0 potassium chloride (KLOR-CON M10) 10 mEq CR tablet TAKE 1 TABLET BY MOUTH DAILY 100 tablet 2 tamsulosin (FLOMAX) 0.4 mg 24 hr capsule Take 1 capsule (0.4 mg total) by mouth 1 (one) time each day. Capsules should be taken 30 minutes following the same meal each day. 90 capsule 2 [4] Allergies Allergen Reactions Lisinopril Swelling documented in this encounter Plan of Treatment Upcoming Encounters Date Type Department Care Team (Late st Contact Info) Description 11/24/2025 1:00 PM EST Office Visit Internal Medicine - [place] [address] [facility] [address] [place] [phone] Kelly Lee MD [address] [facility] [address] [place] [address] documented as of this encounter Procedures Procedure Name Priority Date/Time Associated Diagnosis Comments POC RAPID [id number], MOLECULAR Routine 09/03/2025 9:41 AM EDT Symptoms of upper respiratory infection (URI) documented in this encounter Results * Poc Rapid [id number], MOLECULAR (09/03/2025 9:41 AM EDT) COVID-19/SARS- COV-2 Rapid POC Negative Negative Swab Nasopharyngeal structure / Unknown 09/03/2025 9:41 AM EDT Hector Smallwood NP POINT OF CARE TEST ENTER/EDIT ORDERABLES Final Result documented in this encounter Visit Diagnoses Diagnosis Symptoms of upper respiratory infection (URI)- Primary documented in this encounter Additional Health Concerns Assessment Noted Time PHQ-9 Depression Total Score: 0 05/25/20 25 1:37 PM EDT documented as of this encounter Care Teams Global Compensation Manager Relationship Specialty Start Date End Date Kelly eLe MD [address] [facility] [address] [place] [phone] PCP - General Internal Medicine 11/01/18 documented as of this encounter
--- OUTSIDE RECORDS SUMMARY | 2025-09-06 08:45 | XMS_ITS | Encounter Summary ---
Author Organization [facility] Address [address] [place] [address] Care Team Providers Care Train Attendant Name Role Phone Kelly Lee MD Primary Care Provider [phone] Reason for Referral * Consultation (Routine) - Pending Review Specialty Diagnoses / Procedures Referred By Contac t Referred To Contact Dermatology Diagnoses Rash Kelly Lee MD [address] [address] Phone: tel: fax: Referral ID Status Reason Start Date Expiration Date Visits Requested Visits Authorized [id number] Pending Review Specialty Services Required 09/06/2025 09/06/2026 1 1 * Imaging (Routine) - Authorized Specialty Diagnoses / Procedures Referred By Contac t Referred To Contact Radiology Diagnoses Right lower lobe lung mass Abnormal chest xray Procedures CT Chest wo Contrast Kelly Lee MD [address] [address] Phone: tel: fax: [facility] CT Scan [address] [place] [address] Phone: tel: Referral ID Status Reason Start Date Expiration Date V isits Requested Visits Authorized [id number] Authorized 09/06/2025 09/06/2026 1 1 Reason for Visit * Reason Comments Hospital Follow-up Encounter Details Date Type Department Care Team (Late st Contact Info) Description 09/06/2025 8:45 AM EDT Office Visit Internal Medicine - [place] [address] [facility] [address] [place] [address] Kelly Lee MD [address] [facility] [address] [place] [address] Right lower lobe lung mass (Primary Dx); Abnormal chest xray; Rash; Hypokalemia; Essential hypertension, benign; Anemia, unspecified type; Benign prostatic hyperplasia with lower urinary tract symptoms, symptom details unspecified; Type 2 diabetes mellitus without complication, without long-term current use of insulin ([facility] V24, [facility] V28) Social History Tobacco Use Types Packs/Day Years Used Date Smoking Tobacco: Former Cigarettes 0.5 33.4 0 11/30/1972 - 04/30/2006 Smokeless Tobacco: Never Tobacco Cessation:Counseling Given: Not Answered Alcohol Use Standard Drinks/Week Comments No 0 [...] for your loved ones. For example, children's lunchroom supervisor or elderly care for an older adult? [...] Sign Reading Time Taken Comments Blood Pressure 128/86 09/06/2025 8:53 AM EDT Pulse 90 09/06/2025 8:53 AM EDT Temperature 36.6 C (97.9 F) 09/06/2025 8:53 AM EDT Respiratory Rate 18 09/06/2025 8:53 AM EDT Oxygen Saturation 96% 09/06/2025 8:53 AM EDT Inhaled Oxygen Concentration - - Weight 79.4 kg (175 lb) 09/06/2025 8:53 AM EDT Height 167.6 cm (5' 6 ) 09/06/2025 8:53 AM EDT Body Mass Index 28.25 09/06/2025 8:53 AM EDT documented in this encounter Ordered Prescriptions Prescription Sig Dispense Quantity Refills Last Filled Start Date End Date triamcinolone (KENALOG) 0.1 % cream Apply to affected area 1-2 times daily as needed. Avoid face and groin. 60 g 5 09/06/2025 6 documented in this encounter Progress Notes * Kelly Lee MD - 09/06/2025 8:45 AM EDT CHIEF COMPLAINT: Hospital Follow-up IDENTIFIER: Jw De Leon is a 70 y.o. old male. HPI: Patient was in the [facility] emergency room yesterday for cough and shortness of breath, COVID-negative, x-ray was showing 4.4 cm size density suspicious for air or pneumonia or a mass, patient was prescribed Augmentin, recommended a follow- up chest x-ray or a CT chest Patient is also concerned about discoloration of the skin on his neck and upper back, not really itchy ROS: GENERAL: No malaise, significant weight loss or fever NECK: No lumps, goiter, pain or significant neck swelling RESPIRATORY: No cough, wheezing or shortness of breath CARDIOVASCULAR: No chest pain, leg swelling or palpitations GI: No abdominal discomfort, blood in stools or black stools PSYCH: No sleep disturbance, mood disorder or recent psychosocial stressors. PAST MEDICAL HISTORY: Patient Active Problem List [...] No partnership data on file MEDICATIONS DISCONTINUED/REORDERED: Medications Discontinued During This Encounter Medication Reason magnesium oxide (MAG-OX) 400 mg (241.3 elemental magnesium) tablet Duplicate order ACTIVE MEDICATIONS: Medications Taking[3] ALLERGIES: Allergies[4] PHYSICAL EXAM: Visit Vitals BP 128/86 (BP Location: Left arm, Patient Position: Sitting, BP Cuff Size: Adult) Pulse 90 Temp 36.6 ??C (97.9 ??F) (Temporal) Resp 18 Ht 1.676 m (66 ) Wt 79.4 kg (175 lb) SpO2 96% BMI 28.25 kg/m?? Smoking Status Former BSA 1.89 m?? APPEARANCE: Alert and in no acute distress NECK: Neck supple, no adenopathy, thyroid symmetric and of normal size HEART: RRR with normal S1 and S2, no murmurs, no gallops, no JVD appreciated LUNG: clear to auscultation ABDOMEN: Bowel sounds normoactive, no bruits, soft, non-tender, without organomegaly or palpable masses SKIN: Skin color, texture, turgor normal. No rashes or lesions. LABS/IMAGING: Office Visit on 09/03/2025 Component Date Value Ref Range Status COVID-19/SARS-COV-2 Rapid POC 09/03/2025 Negative Negative Final Appointment on 05/25/2025 Component Date Value Ref Range Status Sodium 05/25/2025 138 133 - 145 mmol/L Final Potassium 05/25/2025 3.6 3.5 - 5.5 mmol/L Final Chloride 05/25/2025 104 96 - 110 mmol/L Final CO2 05/25/2025 27 21 - 32 mmol/L Final Anion Gap 05/25/2025 7 3 - 11 Final Glucose 05/25/2025 133 (H) 70 - 100 mg/dL Final BUN 05/25/2025 13 5 - 25 mg/dL Final Creatinine 05/25/2025 1.00 0.70 - 1.30 mg/dL Final eGFR 05/25/2025 80 >=60 mL/min/1.73m2 Final BUN/Creatinine Ratio 05/25/2025 13.0 Final Calcium 05/25/2025 9.1 8.5 - 10.5 mg/dL Final AST (SGOT) 05/25/2025 16 10 - 42 unit/L Final ALT (SGPT) 05/25/2025 27 10 - 60 unit/L Final Alkaline Phosphatase 05/25/2025 63 42 - 121 unit/L Final Total Protein 05/25/2025 7.8 6.0 - 8.0 g/dL Final Albumin 05/25/2025 3.9 3.2 - 5.0 g/dL Final Total Bilirubin 05/25/2025 0.5 0.0 - 1.4 mg/dL Final Magnesium 05/25/2025 1.8 (L) 1.9 - 2.6 mg/dL Final Iron 05/25/2025 118 50 - 160 mcg/dL Final TIBC 05/25/2025 339 250 - 450 mcg/dL Final Iron Saturation 05/25/2025 35 20 - 50 % Final Ferritin 05/25/2025 438 (H) 26 - 388 ng/mL Final PSA 05/25/2025 3.17 0.00 - 4.00 ng/mL Final WBC 05/25/2025 5.4 4.8 - 10.8 K/mcL Final RBC 05/25/2025 4.40 (L) 4.50 - 5.50 M/mcL Final Hemoglobin 05/25/2025 10.9 (L) 13.5 - 17.5 g/dL Final Hematocrit 05/25/2025 36.7 (L) 42.0 - 54.0 % Final MCV 05/25/2025 83.8 79.0 - 98.0 FL Final MCH 05/25/2025 24.9 (L) 27.0 - 32.0 pcg Final MCHC 05/25/2025 29.7 (L) 32.0 - 37.0 g/dL Final RDW 05/25/2025 12.3 11.0 - 15.0 % Final Platelets 05/25/2025 210 130 - 400 K/mcL Final MPV 05/25/2025 12.1 (H) 7.0 - 11.0 FL Final NRBC 05/25/2025 0.0 <1.0 % Final NRBC Absolute 05/25/2025 0.00 <0.10 K/mcL Final Neutrophils Relative 05/25/2025 41.7 % Final Lymphocytes Relative 05/25/2025 44.0 % Final Monocytes Relative 05/25/2025 11.6 % Final Eosinophils Relative 05/25/2025 1.7 % Final Basophils Relative 05/25/2025 0.6 % Final Immature Granulocytes Relative 05/25/2025 0.4 % Final Neutrophils Absolute 05/25/2025 2.27 1.50 - 7.00 K/mcL Final Lymphocytes Absolute 05/25/2025 2.39 1.00 - 5.00 K/mcL Final Monocytes Absolute 05/25/2025 0.63 0.20 - 1.00 K/mcL Final Eosinophils Absolute 05/25/2025 0.09 0.00 - 0.50 K/mcL Final Basophils Absolute 05/25/2025 0.03 0.00 - 0.20 K/mcL Final Immature Granulocytes Absolute 05/25/2025 0.02 0.00 - 0.03 K/mcL Final Medication and lab orders: Orders Placed This Encounter Procedures CT Chest wo Contrast Hemoglobin A1c Comprehensive metabolic panel CBC and differential Ambulatory referral to Dermatology Other orders: CT CHEST WO CONTRAST AMB REFERRAL TO DERMATOLOGY IMPRESSION: 1. Right lower lobe lung mass 2. Abnormal chest xray 3. Rash 4. Hypokalemia 5. Essential hypertension, benign 6. Anemia, unspecified type 7. Benign prostatic hyperplasia with lower urinary tract symptoms, symptom details unspecified 8. Type 2 diabetes mellitus without complication, without long-term current use of insulin ([facility], [facility] V28) PLAN: Chest x-ray abnormal at [facility] emergency room/4.4 cm mass right base--CT chest ordered Rash--will prescribe triamcinolone cream, dermatology referral placed ?? Pneumonia--continue Augmentin prescribed by [facility] emergency room Will follow-up as scheduled in October Kelly Lee MD on 09/06/2025 at 10:00 AM EDT [1] Past Surgical History: Procedure Laterality Date [...] Outpatient Medications Marked as Taking for the 09/06/25 encounter (Office Visit) with Kelly Lee MD Medication Sig Dispense Refill amLODIPine (NORVASC) 10 mg tablet Take 1 tablet (10 mg total) by mouth 1 (one) time each day. 90 tablet 1 atorvastatin (LIPITOR) 10 mg tablet TAKE 1 TABLET(10 MG) BY MOUTH 1 TIME EACH DAY 90 tablet 1 benzonatate (TESSALON) 100 mg capsule Take 1 capsule (100 mg total) by mouth 3 (three) times a day if needed for cough for up to 7 days. Do not crush or chew. 21 each 0 carbamide peroxide (DEBROX) 6.5 % otic solution Administer 5-10 drops into each ear 2 (two) times aday. 30 mL 5 fluticasone propionate (FLONASE) 50 mcg/actuation nasal spray 1 Misen[place] by Nasal route daily. 1 sprayeach nostril daily hydroCHLOROthiazide (HYDRODIURIL) 25 mg tablet Take 1 tablet (25 mg total) by mouth 1 (one) time each day. 90 tablet 1 losartan (COZAAR) 100 mg tablet TAKE 1 TABLET(100 MG) BY MOUTH 1 TIME EACH DAY 30 tablet 1 magnesium oxide 400 mg [...] same meal each day. 90 capsule 2 [DISCONTINUED] magnesium oxide (MAG-OX) 400 mg (241.3 elemental magnesium) tablet Take 1 tablet (400 mg total) by mouth 1 (one) time each day. 30 tablet 1 [4] Allergies Allergen Reactions Lisinopril Swelling documented in this encounter Plan of Treatment Upcoming Encounters Date Type Department Care Team (Late st Contact Info) Description 11/24/2025 1:00 PM EST Office Visit Internal Medicine - [place] [address] [facility] [address] [place] [address] Kelly Lee MD [address] [facility] [address] [place] [address] Scheduled Orders Name Type Priority Associated Diagnoses Orde r Schedule CT Chest wo Contrast Imaging Routine Right lower lobe lung mass Abnormal chest xray Expected: 09/06/2025, Expires: 09/06/2026 Scheduled Referrals Name Type Priority Associated Diagnoses Order Schedule Ambulatory referral to Dermatology Outpatient Referral Routine Rash 1 Occurrences starting 09/06/2025 until 09/06/2026 documented as of this encounter Results * (ABNORMAL) Comprehensive metabolic panel (09/06/2025 9:24 AM EDT) Sodium 140 133 - 145 mmol/L LAB CHEMISTRY METHOD 09/06/2025 2:42 PM [facility] Potassium 3.9 3.5 - 5.5 mmol/L LAB CHEMISTRY METHOD 09/06/2025 2:42 PM [facility] Chloride 106 96 - 110 mmol/L LAB CHEMISTRY METHOD 09/06/2025 2:42 PM [facility] CO2 26 21 - 32 mmol/L LAB CHEMISTRY METHOD 09/06/2025 2:42 PM [facility] Anion Gap 8 3 - 11 LAB CHEMISTRY METHOD 09/06/2025 2:42 PM [facility] Glucose 148(H) 70 - 100 mg/dL LAB CHEMISTRY METHOD 09/06/2025 2:42 PM [facility] BUN 12 5 - 25 mg/dL LAB CHEMISTRY METHOD 09/06/2025 2:42 PM [facility] Creatinine 1.11 0.70 - 1.30 mg/dL LAB CHEMISTRY METHOD 09/06/2025 2:42 PM [facility] eGFR 71 >=60 mL/min/1. 73m2 LAB CHEMISTRY METHOD 09/06/2025 2:42 PM T [facility] Comment:Calculation based on the Chronic Kidney Disease Epidemiology Collaboration (CKD-EPI) equation refit without adjustment for race. BUN/Creatinine Ratio 10.8 LAB CHEMISTRY METHOD 09/06/2025 2:42 PM T [facility] Calcium 9.8 8.5 - 10.5 mg/dL LAB CHEMISTRY METHOD 09/06/2025 2:42 PM [facility] AST (SGOT) 25 10 - 42 unit/L LAB CHEMISTRY METHOD 09/06/2025 2:42 PM [facility] ALT (SGPT) 30 10 - 60 unit/L LAB CHEMISTRY METHOD 09/06/2025 2:42 PM [facility] Alkaline Phosphatase 66 42 - 121 unit/L LAB CHEMISTRY METHOD 09/06/2025 2:42 PM [facility] Total Protein 8.2(H) 6.0 - 8.0 g/dL LAB CHEMISTRY METHOD 09/06/2025 2:42 PM [facility] Albumin 3.8 3.2 - 5.0 g/dL LAB CHEMISTRY METHOD 09/06/2025 2:42 PM [facility] Total Bilirubin 0.2 0.0 - 1.4 mg/dL LAB CHEMISTRY METHOD 09/06/2025 2:42 PM [facility] Blood Venous blood specimen / Unknown Venipuncture / Unknown 09/06/2025 9:24 AM EDT 09/06/2025 9:24 AM EDT us Kelly Lee MD LAB BLOOD ORDERABLES Final Res ult [facility] [address] [place] [address], * Hemoglobin A1c (09/06/2025 9:24 AM EDT) Hemoglobin A1C 6.2 <6.5 % LAB CHEMISTRY METHOD 09/06/2025 12:26 PM EDT [facility] Mean Bld Glu Estim. 131 mg/dL LAB CHEMISTRY METHOD 09/06/2025 12:26 PM EDT [facility] Blood Venous blood specimen / Unknown Venipuncture / Unknown 09/06/2025 9:24 AM EDT 09/06/2025 9:24 AM EDT us Kelly Lee MD LAB BLOOD ORDERABLES Final Res ult [facility] [address] [place] [address], documented in this encounter Visit Diagnoses Diagnosis Right lower lobe lung mass- Primary Abnormal chest xray Nonspecific (abnormal) findings on radiological and other examination of lung field Rash Rash and other nonspecific skin eruption Hypokalemia Hypopotassemia Essential hypertension, benign Anemia, unspecified type Benign prostatic hyperplasia with lower urinary tract symptoms, symptom details unspecified Type 2 diabetes mellitus without complication, without long-term current use of insulin ([facility] V24, [facility] V28) documented in this encounter Discontinued Medications Medication Sig Discontinue Reason Start Date End Da te magnesium oxide (MAG-OX) 400 mg (241.3 elemental magnesium) tablet Take 1 tablet (400 mg total) by mouth 1 (one) time each day. Duplicate order 03/06/2025 09/06/2025 documented as of this encounter Additional Health Concerns Assessment Noted Time PHQ-9 Depression Total Score: 0 05/25/20 25 1:37 PM EDT documented as of this encounter Care Teams Train Attendant Relationship Specialty Start Date End Date Kelly Lee MD [address] [phone] PCP - General Internal Medicine 11/01/18 documented as of this encounter
--- NOTE | 2025-09-07 12:43 | ECG_ITS ---
Test Reason : chest pain Blood Pressure : */* mmHG Vent. Rate : 73 BPM Atrial Rate : 73 BPM P-R Int : 158 ms QRS Dur : 84 ms QT Int : 386 ms P-R-T Axes : 60 17 46 degrees QTcB Int : 425 ms Normal sinus rhythm Normal ECG No previous ECGs available Referred By: Generic ED Physician Electronically Signed By: MARAL ARRIOLA MD
[2025-09-07 13:01] VITALS: BP 124/60; PULSE 73; RESP 20; TEMP 36.8; O2SAT 98; BMI 28.2
--- NOTE | 2025-09-07 13:03 | ED.GENADULT ---
HPI - General Adult General Chief complaint: Dyspnea Stated complaint: Chest pain, SOB, cough Related Data Previous Rx's ?Medication ?Instructions ?Recorded amoxicillin 500 mg capsule 1,000 mg (2 x 500 mg) PO TID 5 09/05/25 days #30 caps Allergies Allergy/AdvReac Type Severity Reaction Status Date / Time lisinopril Allergy Angioedema Verified 09/07/25 13:04 [facility] Social History Social History Advance Directives: No Advance Directives Information Provided: Yes Do you have a plan to hurt others: No Plan Physical Exam ED Vital Signs: BMI result Body Mass Index 28.2 Course Course Course Narrative: This is a rapid medical exam performed by Alex Worthy NP: Additional HPI, ROS, PE not included below will be deferred to primary provider. Patient is a 70y/o M presenting with worsening dyspnea and cough after recent visit. Was prescribed abx for pna but feeling worse. CXR read PNA vs mass. Plan: will need CT chest, labs Patient left the emergency department before myself or any of the other clinicians could review or explain physical exam findings, test results, need or lack there of for additional testing, treatment options, or a treatment plan. Patient was advised at previous visit to follow up with PCP regarding PNA versus lung mass. Medical Decision Making Lab Data 09/07/25 13:12 09/07/25 13:12 Labs: Lab Results 09/07/25 Range/Units 13:12 WBC 5.8 (4.8-10.8) X10*3/uL RBC 4.64 (4.60-5.80) X10*6/uL Hgb 11.1 L (14.0-18.0) g/dl Hct 36.7 L (42.0-52.0) % MCV 79.1 L (80.0-98.0) fL MCH 23.9 L (27.0-33.0) pg MCHC 30.2 L (31.0-36.0) g/dl RDW 12.0 (11.0-16.0) % Plt Count 232 (160-400) X10*3/uL MPV 10.3 (9.4-12.4) fL Immature Gran % (Auto) 0.2 (0.0-0.4) % Neut % (Auto) 49.4 (45-73) % Lymph % (Auto) 38.9 (20-40) % [place] % (Auto) 7.4 (2-11) % Eos % (Auto) 3.4 (0-4) % Baso % (Auto) 0.7 (0-2) % Lymph # (Auto) 2.3 (1.2-4.9) X10*3/uL [place] # (Auto) 0.4 (0.1-1.2) X10*3/uL Eos # (Auto) 0.2 (0.0-0.4) X10*3/uL Baso # (Auto) 0.0 (0.0-0.2) X10*3/uL Abs Immat Gran (auto) 0.01 (0.00-0.03) X10*3/uL Absolute Neuts (auto) 2.9 (2.0-8.3) x10*3/uL Absolute Nucleated RBC 0.000 (0.0-0.012) X10*3/uL Nucleated RBC % (auto) 0.0 (0.0-0.2) /100WBC PT 12.1 (10.9-12.4) SEC INR 1.1 (0.9-1.1) Sodium 141 (135-145) mmol/L Potassium 3.5 (3.3-5.1) mmol/L Chloride 107 (96-108) mmol/L Carbon Dioxide 26 (22-29) mmol/L Anion Gap 12 (12-20) BUN 11 (9-16) mg/dL Creatinine 0.96 (0.5-1.4) mg/dL Estim Creat Clear Calc 68.8 Estimated GFR > 60 Random Glucose 134 H (60-115) mg/dL Calcium 9.5 (8.4-10.2) mg/dL Total Bilirubin 0.6 (0.0-1.0) mg/dL AST 24 (5-37) U/L ALT 19 (0-40) U/L Alkaline Phosphatase 60 (39-117) U/L Total Protein 8.0 (6.5-8.0) g/dL Albumin 4.3 (3.5-5.0) g/dL Discharge Plan Discharge Clinical Impression: Shortness of breath Patient Disposition: Left W/O Completing Treatment Prescriptions: No Action amoxicillin 500 mg capsule 1,000 mg PO TID 5 Days Qty: 30 0RF Discharge Date/Time: 09/07/25 16:47
[2025-09-07 13:15] LABS: MANUAL DIFF FLAG NO
[2025-09-07 13:18] LABS: Hematocrit 36.7 % (42.0-52.0); Hemoglobin 11.1 g/dl (14.0-18.0); Imm Gran Abs Auto 0.01 X10*3/uL (0.00-0.03); Imm Gran Pct Auto 0.2 % (0.0-0.4); Lymphocytes Absolute Auto 2.3 X10*3/uL (1.2-4.9); Mean Corpuscular HGB Conc 30.2 g/dl (31.0-36.0); Mean Corpuscular Hemoglobin 23.9 pg (27.0-33.0); Mean Corpuscular Volume 79.1 fL (80.0-98.0); NRBC Abs Auto 0.000 X10*3/uL (0.0-0.012); NRBC Pct Auto 0.0 /100WBC (0.0-0.2); Platelet Count 232 X10*3/uL (160-400); Red Blood Count 4.64 X10*6/uL (4.60-5.80); White Blood Count 5.8 X10*3/uL (4.8-10.8)
--- OUTSIDE RECORDS SUMMARY | 2025-09-07 13:19 | XMS_ITS | Clinical Summary ---
Author Organization 175 [facility] Address [address] [place] [address] Phone Care Team Providers Care Member Of The Legislative Assembly Name Role Phone Kelly Lee MD Primary Care Provider [phone] Allergies Active Allergy Reactions Criticality Noted Date Comments Lisinopril Swelling 01/12/2012 Medications fluticasone propionate (FLONASE) 50 mcg/actuation nasal spray 1 [place] by Nasal route daily. 1 spray each nostril daily 05/21/20 23 Active tamsulosin (FLOMAX) 0.4 mg 24 hr capsule Take 1 capsule (0.4 mg total) by mouth 1 (one) time each day. Capsules should be taken 30 minutes following the same meal each day. 90 capsule 2 02/25/20 25 Active metFORMIN XR (GLUCOPHAGE-XR ) 500 [...] chew. 21 each 09/03/20 25 025 Active triamcinolone (KENALOG) 0.1 % cream Apply to affected area 1-2 times daily as needed. Avoid face and groin. 60 g 5 09/06/20 25 026 Active magnesium oxide (MAG-OX) 400 mg (241.3 elemental magnesium) tablet Take 1 tablet (400 mg total) by mouth 1 (one) time each day. 30 tablet 1 03/06/20 25 025 Discontinued(Du plicate order) losartan (COZAAR) 100 mg tablet Take 1 [...] Encounters Date Type Department Care Team Description 09/06/2025 8:45 AM EDT Office Visit Internal Medicine [address] [address] Kelly Lee MD Right lower lobe lung mass (Primary Dx); Abnormal chest xray; Rash; Hypokalemia; Essential hypertension, benign; Anemia, unspecified type; Benign prostatic hyperplasia with lower urinary tract symptoms, symptom details unspecified; Type 2 diabetes mellitus without complication, without long-term current use of insulin ([facility] V24, [facility] V28) 09/06/2025 Results Follow-Up Internal Medicine [address] [address] Kelly Lee MD 09/05/2025 Telephone Internal Medicine [address] [address] Kelly Lee MD 09/03/2025 9:30 AM EDT Office Visit [facility] [address] [phone] Hector Smallwood NP Symptoms of upper respiratory infection (URI) (Primary Dx) 07/04/2025 9:00 AM EDT Office Visit Internal Medicine [address] [address] Glen Elias MD Subacute maxillary sinusitis (Primary Dx); Nonintractable headache, unspecified chronicity pattern, unspecified headache type 07/03/2025 Telephone Internal Medicine [address] [address] Kelly Lee MD 06/08/2025 3:45 PM EDT Office Visit Internal Medicine - [address] [place] [address] Lainey Wells MD Sore throat (Primary Dx); Nonintractable headache, unspecified chronicity pattern, unspecified headache type; Bilateral impacted cerumen from Last 3 Months Immunizations Immunization Administration Dates Next Due Influenza trivalent, 0.5mL (Fluad) 65yo and olde r 08/22/2019 Pfizer SARS-CoV-2 COVID-19, mRNA, LNP-S, preservative free 03/07/2021,02/08/2021 [...] care for your loved ones. For example, child health associate or elderly care for an older adult? [...] Mass Index 28.25 09/06/2025 8:53 AM EDT Plan of Treatment Upcoming Encounters Date Type Department Care Team (Late st Contact Info) Description 11/24/2025 1:00 PM EST Office Visit Internal Medicine - [place] [address] [facility] [address] [place] [address] eKlly Lee MD 175 [facility] [address] [place] [phone] Health Maintenance Due Date Last Done Comments Diabetes: Annual Foot Exam 1965 Diabetes: Annual Retina Eye Exam 1965 Abdominal Aortic Aneurysm (AAA) Screen 11/08/2022 Zoster Vaccines (3 of 3) 04/09/2024 02/13/2024, 05/01 COVID-19 Vaccine ( season) 2025 09/16/2024, 02/13/2024, 09/03/2023, Additional history exists Diabetes: Annual Urine Albumin-Creatinine Ratio (uACR) 09/06/2025 Falls Risk Assessment 11/15/2025 11/15/2024 Social Influencers of Health Screening 11/15/2025 11/15/2024 DTaP,Tdap,and Td Vaccines (4 - Td or Tdap) 12/11/2025 12/11/2015, 04/02/2006, 11/30/1995 Colorectal Cancer Screening: Colonoscopy 12/17/2025 12/17/2020 Diabetes: Blood Sugar Control Test (HGBA1C) 03/07/2026 09/06/2025, 11/15/2024, 05/26/2024, Additional history exists Medicare Annual Wellness Visit 05/25/2026 05/25/2025 Diabetes: Annual GFR (Glomerular Filtration Rate) 09/06/2026 09/06/2025, 05/25/2025, 11/15/2024, Additional history exists Hypertension/CHF/CAD Annual BMP Blood Test 09/06/2026 09/06/2025, 05/25/2025, 11/15/2024, Additional history exists Cholesterol Screening (Lipid Panel) 05/26/2029 05/26/2024, 05/26/2024 [...] Procedure Name Priority Date/Time Associated Diagnosis Comments CBC WITH AUTO DIFFERENTIAL Routine 09/06/2025 9:24 AM EDT Right lower lobe lung mass Abnormal chest xray Rash Hypokalemia Essential hypertension, benign Anemia, unspecified type Benign prostatic hyperplasia with lower urinary tract symptoms, symptom details unspecified HEMOGLOBIN A1C Routine 09/06/2025 9:24 AM EDT Right lower lobe lung mass Abnormal chest xray Rash Hypokalemia Essential hypertension, benign Anemia, unspecified type Benign prostatic hyperplasia with lower urinary tract symptoms, symptom details unspecified Type 2 diabetes mellitus without complication, without long-term current use of insulin ([facility] V24, [facility] V28) COMPREHENSIVE METABOLIC PANEL Routine 09/06/2025 9:24 AM EDT Right lower lobe lung mass Abnormal chest xray Rash Hypokalemia Essential hypertension, benign Anemia, unspecified type Benign prostatic hyperplasia with lower urinary tract symptoms, symptom details unspecified CBC AND DIFFERENTIAL Routine 09/06/2025 9:24 AM EDT Right lower lobe lung mass Abnormal chest xray Rash Hypokalemia Essential hypertension, benign Anemia, unspecified type Benign prostatic hyperplasia with lower urinary tract symptoms, symptom details unspecified POC RAPID [id number], MOLECULAR Routine 09/03/2025 9:41 AM EDT Symptoms of upper respiratory infection (URI) DEPRESSION SCREENING Routine 05/26/2024 LIPID PANEL Routine 05/26/2024 COLONOSCOPY Routine 12/17/2020 HEPATITIS C SCREENING Routine 10/11/2019 from Last 3 Months or Most Recently Relevant to Health Maintenance Results * (ABNORMAL) CBC auto differential (09/06/2025 9:24 AM EDT) [facility] WBC 7.2 4.8 - 10.8 K/mcL LAB HEMETOLOGY METHOD 09/06/2025 10:48 AM [facility] RBC 4.60 4.50 - 5.50 M/mcL LAB HEMETOLOGY METHOD 09/06/2025 10:48 AM [facility] Hemoglobin 11.1(L) 13.5 - 17.5 g/dL LAB HEMETOLOGY METHOD 09/06/2025 10:48 AM [facility] Hematocrit 36.2(L) 42.0 - 54.0 % LAB HEMETOLOGY METHOD 09/06/2025 10:48 AM [facility] MCV 79.6 79.0 - 98.0 FL LAB HEMETOLOGY METHOD 09/06/2025 10:48 AM [facility] MCH 24.4(L) 27.0 - 32.0 pcg LAB HEMETOLOGY METHOD 09/06/2025 10:48 AM [facility] MCHC 30.7(L) 32.0 - 37.0 g/dL LAB HEMETOLOGY METHOD 09/06/2025 10:48 AM [facility] RDW 12.0 11.0 - 15.0 % LAB HEMETOLOGY METHOD 09/06/2025 10:48 AM [facility] Platelets 244 130 - 400 K/mcL LAB HEMETOLOGY METHOD 09/06/2025 10:48 AM [facility] MPV 10.9 7.0 - 11.0 FL LAB HEMETOLOGY METHOD 09/06/2025 10:48 AM [facility] NRBC 0.0 <1.0 % LAB HEMETOLOGY METHOD 09/06/2025 10:48 AM [facility] NRBC Absolute 0.00 <0.10 K/mcL LAB HEMETOLOGY METHOD 09/06/2025 10:48 AM EDT [facility] Neutrophils Relative 55.6 % LAB HEMETOLOGY METHOD 09/06/2025 10:48 AM [facility] Lymphocytes Relative 33.0 % LAB HEMETOLOGY METHOD 09/06/2025 10:48 AM [facility] Monocytes Relative 6.7 % LAB HEMETOLOGY METHOD 09/06/2025 10:48 AM [facility] Eosinophils Relative 4.0 % LAB HEMETOLOGY METHOD 09/06/2025 10:48 AM [facility] Basophils Relative 0.4 % LAB HEMETOLOGY METHOD 09/06/2025 10:48 AM [facility] Immature Granulocytes Relative 0.3 % LAB HEMETOLOGY METHOD 09/06/2025 10:48 AM [facility] Neutrophils Absolute 4.00 1.50 - 7.00 K/mcL LAB HEMETOLOGY METHOD 09/06/2025 10:48 AM [facility] Lymphocytes Absolute 2.37 1.00 - 5.00 K/mcL LAB HEMETOLOGY METHOD 09/06/2025 10:48 AM [facility] Monocytes Absolute 0.48 0.20 - 1.00 K/mcL LAB HEMETOLOGY METHOD 09/06/2025 10:48 AM [facility] Eosinophils Absolute 0.29 0.00 - 0.50 K/mcL LAB HEMETOLOGY METHOD 09/06/2025 10:48 AM [facility] Basophils Absolute 0.03 0.00 - 0.20 K/mcL LAB HEMETOLOGY METHOD 09/06/2025 10:48 AM [facility] Immature Granulocytes Absolute 0.02 0.00 - 0.03 K/mcL LAB HEMETOLOGY METHOD 09/06/2025 10:48 AM EDT [facility] Blood Venous blood specimen / Unknown Venipuncture / Unknown 09/06/2025 9:24 AM EDT 09/06/2025 9:24 AM EDT Kelly Lee MD LAB BLOOD ORDERABLES Final Res ult Performing Organization Address [facility]/ZIP Co de Phone Number [facility] [address] [place] [address], [place] [phone] * Hemoglobin A1c (09/06/2025 9:24 AM EDT) Hemoglobin A1C 6.2 <6.5 % LAB CHEMISTRY METHOD 09/06/2025 12:26 PM EDT [facility] Mean Bld Glu Estim. 131 mg/dL LAB CHEMISTRY METHOD 09/06/2025 12:26 PM EDT [facility] Blood Venous blood specimen / Unknown Venipuncture / Unknown 09/06/2025 9:24 AM EDT 09/06/2025 9:24 AM EDT us Kelly Lee MD LAB BLOOD ORDERABLES Final Res ult Performing Organization Address [facility]/ZIP Tn de Phone Number [facility] [address] [place] [address], [place] [phone] * (ABNORMAL) Comprehensive metabolic panel (09/06/2025 9:24 AM EDT) Sodium 140 133 - 145 mmol/L LAB CHEMISTRY METHOD 09/06/2025 2:42 PM EDT [facility] Potassium 3.9 3.5 - 5.5 mmol/L LAB CHEMISTRY METHOD 09/06/2025 2:42 PM EDT [facility] Chloride 106 96 - 110 mmol/L LAB CHEMISTRY METHOD 09/06/2025 2:42 PM EDT [facility] CO2 26 21 - 32 mmol/L LAB CHEMISTRY METHOD 09/06/2025 2:42 PM [facility] Anion Gap 8 3 - 11 LAB CHEMISTRY METHOD 09/06/2025 2:42 PM [facility] Glucose 148(H) 70 - 100 mg/dL LAB CHEMISTRY METHOD 09/06/2025 2:42 PM [facility] BUN 12 5 - 25 mg/dL LAB CHEMISTRY METHOD 09/06/2025 2:42 PM [facility] Creatinine 1.11 0.70 - 1.30 mg/dL LAB CHEMISTRY METHOD 09/06/2025 2:42 PM [facility] eGFR 71 >=60 mL/min/1. 73m2 LAB CHEMISTRY METHOD 09/06/2025 2:42 PM [facility] Comment:Calculation based on the Chronic Kidney Disease Epidemiology Collaboration (CKD-EPI) equation refit without adjustment for race. BUN/Creatinine Ratio 10.8 LAB CHEMISTRY METHOD 09/06/2025 2:42 PM [facility] Calcium 9.8 8.5 - 10.5 mg/dL LAB CHEMISTRY METHOD 09/06/2025 2:42 PM [facility] AST (SGOT) 25 10 - 42 unit/L LAB CHEMISTRY METHOD 09/06/2025 2:42 PM [facility] ALT (SGPT) 30 10 - 60 unit/L LAB CHEMISTRY METHOD 09/06/2025 2:42 PM [facility] Alkaline Phosphatase 66 42 - 121 unit/L LAB CHEMISTRY METHOD 09/06/2025 2:42 PM [facility] Total Protein 8.2(H) 6.0 - 8.0 g/dL LAB CHEMISTRY METHOD 09/06/2025 2:42 PM [facility] Albumin 3.8 3.2 - 5.0 g/dL LAB CHEMISTRY METHOD 09/06/2025 2:42 PM EDT [facility] Total Bilirubin 0.2 0.0 - 1.4 mg/dL LAB CHEMISTRY METHOD 09/06/2025 2:42 PM EDT [facility] Blood Venous blood specimen / Unknown Venipuncture / Unknown 09/06/2025 9:24 AM EDT 09/06/2025 9:24 AM EDT Kelyl Lee MD LAB BLOOD ORDERABLES Final Res ult [facility] [address] [place] [address], * Poc Rapid [id number], MOLECULAR (09/03/2025 9:41 AM EDT) [facility] COVID-19/SARS- COV-2 Rapid POC Negative Negative Swab Nasopharyngeal structure / Unknown 09/03/2025 9:41 AM EDT Hector Smallwood NP POINT OF CARE TEST ENTER/EDIT ORDERABLES Final Result * Depression Screening (05/26/2024) [facility] Depression Screening abstracted Historical Provider HEALTH MAINTENANCE Final Result * Lipid panel (05/26/2024) [facility] LDL/HDL Ratio 3 0 - 4 Triglycerides 72 0 - 150 mg/dL Cholesterol 181 0 - 200 mg/dL HDL 70 >=40 mg/dL LDL Cholesterol 97 0 - 100 mg/dL Blood Venous blood specimen / Unknown Historical Provider LAB BLOOD ORDERABLES Cynthia l Result * Colonoscopy (12/17/2020) [facility] Colonoscopy abstracted, no interpretation Anatomical Region Laterality Modality Other Historical Provider HEALTH MAINTENANCE Final Result * Hepatitis C Screening (10/11/2019) [facility] Hepatitis C Screening abstracted us Historical Provider HEALTH MAINTENANCE Final Result from Last 3 Months or Most Recently Relevant to Health Maintenance Insurance [employer] Care Teams Member Of The Legislative Assembly Relationship Specialty Start Date End Date Kelly Lee MD [address] [place] [phone] PCP - General Internal Medicine 11/01/18
--- OUTSIDE RECORDS SUMMARY | 2025-09-07 13:19 | XMS_ITS | Encounter Summary ---
Author Organization [facility] Address [address] [place] [address] Care Team Providers Care Artificial Insemination Technician Name Role Phone Kelly Lee MD Primary Care Provider [phone] Reason for Visit * Reason Onset Date Comments Cough 09/05/2025 Encounter Details Date Type Department Care Team (Late st Contact Info) Description 09/05/2025 Telephone Internal Medicine - [place] [address] [place] [phone] Kelly Lee MD [address] [place] [phone] Social History Tobacco Use Types Packs/Day Years [...] 9:44 AM EDT Call to pt # [phone], spoke w/ his . He went to last week. His symptoms are continued. They are concerned. The just brought the pt to [facility] and they will wait there for [...] and skin one is getting light and straightener Please advise Cb# [phone] documented in this encounter Plan of Treatment Upcoming Encounters Date Type Department Care Team (Late st Contact Info) Description 11/24/2025 1:00 PM EST Office Visit Internal Medicine - [place] [address] [facility] [address] [phone] Kelly Lee MD [address] [facility] [address] [place] [phone] documented as of this encounter Visit Diagnoses Not on filedocumented in this encounter Additional Health Concerns Assessment Noted Time PHQ-9 Depression Total Score: 0 05/25/20 25 1:37 PM EDT documented as of this encounter Care Teams Artificial Insemination Technician Relationship Specialty Start Date End Date Kelly Lee MD [address] [place] [address] PCP - General Internal Medicine 11/01/18 documented as of this encounter
--- OUTSIDE RECORDS SUMMARY | 2025-09-07 13:19 | XMS_ITS | Encounter Summary ---
Author Organization [facility] Address [address] [place] [address] Care Team Providers Care Cot Assembler Name Role Phone Kelly Lee MD Primary Care Provider [phone] Encounter Details Date Type Department Care Team ([facility] st Contact Info) Description 09/06/2025 Results Follow-Up Internal Medicine - [place] [address] [facility] [address] [place] [address] Kelly Lee MD 175 [facility] [address] [place] [phone] Social History Tobacco Use Types Packs/Day Years [...] for your loved ones. For example, director child or elderly care for an older [...] on file documented as of this encounter Plan of Treatment Upcoming Encounters Date Type Department Care Team (Late st Contact Info) Description 11/24/2025 1:00 PM EST Office Visit Internal Medicine - [place] 175 [facility] [address] [place] [address] Kelly Lee MD 175 [facility] [address] [place] [address] documented as of this encounter Visit Diagnoses Not on filedocumented in this encounter Additional Health Concerns Assessment Noted Time PHQ-9 Depression Total Score: 0 05/25/20 25 1:37 PM EDT documented as of this encounter Care Teams Cot Assembler Relationship Specialty Start Date End Date Kelly Lee MD [address] [phone] PCP - General Internal Medicine 11/01/18 documented as of this encounter
[2025-09-07 13:26] LABS: INTERNATIONAL NORM RATIO 1.1 (0.9-1.1); Prothrombin Time 12.1 SEC (10.9-12.4)
[2025-09-07 13:39] LABS: Alanine Aminotransferase 19 U/L (0-40); Albumin Level 4.3 g/dL (3.5-5.0); Alkaline Phosphatase 60 U/L (39-117); Anion Gap 12 (12-20); Aspartate Amino Transferase 24 U/L (5-37); Blood Urea Nitrogen 11 mg/dL (9-16); Calcium 9.5 mg/dL (8.4-10.2); Carbon Dioxide 26 mmol/L (22-29); Chloride 107 mmol/L (96-108); Creatinine Clr Calc Pharmacy 68.8; Estimated Glomerular Filt Rate > 60; Potassium 3.5 mmol/L (3.3-5.1); Sodium 141 mmol/L (135-145); Total Protein 8.0 g/dL (6.5-8.0)
--- NOTE | 2025-09-07 16:46 | PC.NURSE ---
Pt called 2x for room, no answer. [facility]
== END 2025-09-07 16:47 | disposition left against medical advice (07) ==
PROVIDERS: Registered Nurse Emergency; Emergency Provider Emergency Medicine; PCP Internal Medicine
DX: R06.02 Shortness of breath (principal); R07.9 Chest pain, unspecified; R06.00 Dyspnea, unspecified; R05.9 Cough, unspecified; Z53.29 Procedure and treatment not carried out because of patient's decision for other reasons
CPT/HCPCS: 36415; 80053; 85025; 85610; 93005; 99283

== ENCOUNTER → 2025-09-07 12:43 | Outpatient (BNV) | payer MEDICARE, SELFPAY | PROVIDERS: Emergency Provider Emergency Medicine; PCP Internal Medicine; Visit Provider Internal Medicine Cardiovascular Disease | DX: R07.9 Chest pain, unspecified (principal) | CPT/HCPCS: 93010 ==